=== PATIENT | female | born 1990 | race Two or more races ===

== ENCOUNTER 2018-05-06 15:02 | Emergency (ER) | payer BC ==
--- NOTE | 2018-05-06 15:34 | ER Document Report ---
ED General - General Chief Complaint: Vag Bleeding, +preg <12wks Stated Complaint: VAGINAL BLEEDING Time Seen by Provider: 05/06/18 15:18 Notes: Patient is a 27-year-old female, that is 7 weeks gravid, that presents to the emergency department for chief complaint of vaginal spotting. Patient reports that she has had some vaginal spotting in her underwear over the last 3 days, and mild abdominal cramping, denies any right now. Denies having any dysuria, hematuria. She has had some morning sickness, but has not had any nausea or vomiting today. She denies noting any fevers, chills, night sweats, chest pain, shortness of breath or difficulty breathing. She reports that she is otherwise healthy, and denies having any other complaints at this time. She reports she does have an appointment with [facility] on May 14. Past Medical History: Denies chronic medical conditions Past Surgical History: , tonsillectomy Social History: Denies tobacco, alcohol or drug use. Family History: Reviewed and noncontributory for presenting illness Allergies: Reviewed, see documented allergy list. REVIEW OF SYSTEMS: Unless otherwise stated in this report the patient's positive and negative responses for review of systems for constitutional, eyes, ENT, cardiovascular, respiratory, gastrointestinal, neurological, genitourinary, musculoskeletal, and integumentary systems and related systems to the presenting problem are either as stated in the HPI or were not pertinent or were negative for the symptoms and/or complaints related to the presenting medical problem. PHYSICAL EXAMINATION: Vital signs reviewed, nursing noted reviewed. GENERAL: Well-appearing, well-nourished and in no acute distress. HEAD: Atraumatic, normocephalic. EYES: Eyes appear normal, extraocular movements intact, sclera anicteric, conjunctiva are normal. ENT: nares patent, oropharynx clear without exudates. Moist mucous membranes. NECK: Normal range of motion, supple without lymphadenopathy LUNGS: Breath sounds clear to auscultation bilaterally and equal. No wheezes rales or rhonchi. HEART: Regular rate and rhythm without murmurs ABDOMEN: Soft, nontender, normoactive bowel sounds. No rebound, guarding, or rigidity. No masses appreciated. EXTREMITIES: Nontender, good range of motion, no pitting or edema. NEUROLOGICAL: No focal neurological deficits. Moves all extremities spontaneously Motor and sensory grossly intact on exam. PSYCH: Normal mood, normal affect. SKIN: Warm, Dry, normal turgor, no rashes or lesions noted on exposed skin TRAVEL OUTSIDE OF THE [place] IN LAST 30 DAYS: No - Related Data Allergies/Adverse Reactions: No Known Allergies Allergy (Verified 05/06/18 15:03) Past Medical History - Social History Smoking Status: Never Smoker Family History: None Patient has suicidal ideation: No Patient has homicidal ideation: No Renal/ Medical History: Denies: Hx Peritoneal Dialysis GI Medical History: Reports: Hx Gastroesophageal Reflux Disease Past Surgical History: Reports: Hx Section - Immunizations Hx Diphtheria, Pertussis, Tetanus Vaccination: No Physical Exam - Vital signs Vitals: Temp Pulse Resp BP Pulse Ox 98.5 F 64 14 105/66 100 05/06/18 15:08 05/06/18 15:08 05/06/18 15:08 05/06/18 15:08 05/06/18 15:08 Course - Re-evaluation Re-evalutation: Patient seen and examined vital signs reviewed. Laboratory data and imaging were ordered as appropriate for the patient's presenting symptoms and complaint, with consideration of any critical or life threatening conditions that may be associated with their obtained history and exam as noted above. Pelvic ultrasound, urinalysis, and ABO Rh testing ordered Results were reviewed when available and demonstrated live intrauterine , O+, UA was unremarkable, no evidence of urinary tract infection. The patient was re-evaluated and was stable, no complaints Evaluation was most consistent with vaginal bleeding in first trimester, patient advised to follow-up at her [facility] appointment. Results were discussed with the patient at this point, after careful consideration I feel that that patient can be discharged from the emergency department, the patient was educated treatments and reasons to return to the emergency department based on their presumed diagnosis as noted above, they were advised to followup with a primary care physician in 2-3 days. Patient was agreeable to plan of care. *Note is created using voice recognition software and may contain spelling, syntax or grammatical errors. Laboratory 05/06/18 05/06/18 15:30 16:00 Urine Color YELLOW Urine Appearance CLOUDY Urine pH 6.0 Ur Specific [place] 1.014 Urine Protein NEGATIVE Urine Glucose (UA) NEGATIVE Urine Ketones NEGATIVE Urine Blood NEGATIVE Urine Nitrite NEGATIVE Urine Bilirubin NEGATIVE Urine Urobilinogen NEGATIVE Ur Leukocyte Esterase NEGATIVE Urine WBC (Auto) 1 Urine RBC (Auto) 0 Squamous Epi Cells Auto 5 Urine Mucus (Auto) RARE Urine Ascorbic Acid NEGATIVE Blood Type O POSITIVE Rhogam Indicated RHOGAM NOT INDICATED Obstetrics Ultrasound 05/06/18 15:19 IMPRESSION: LIVING INTRAUTERINE . EGA 6 weeks 6 days Trimester of : First - 0 to 13 weeks. - Vital Signs Vital signs: Temp Pulse Resp BP Pulse Ox 97.8 F 60 15 99/59 L 97 05/06/18 16:59 05/06/18 16:59 05/06/18 16:59 05/06/18 16:59 05/06/18 16:59 Discharge - Discharge Clinical Impression: Vaginal bleeding during Condition: Stable Disposition: HOME, SELF-CARE Instructions: Vaginal Bleeding ([facility]) Additional Instructions: Please keep your appointment with your [facility] on May 14, if you have any further concerns, do not hesitate to return to the emergency department.
[2018-05-06 16:30] LABS: APPEARANCE,URINE CLOUDY; BILIRUBIN,URINE NEGATIVE (NEGATIVE); COLOR,URINE YELLOW; GLUCOSE, URINE NEGATIVE (NEGATIVE); KETONES,URINE NEGATIVE (NEGATIVE); LEUKOCYTE ESTERASE,URINE NEGATIVE (NEGATIVE); NITRITE,URINE NEGATIVE (NEGATIVE); PROTEIN,URINE NEGATIVE (NEGATIVE); URINE SPECIFIC GRAVITY 1.014; UROBILINOGEN,URINE NEGATIVE mg/dL (<2.0)
--- NOTE | 2018-05-06 16:55 | RADIOLOGY REPORT (SQ) ---
EXAM DESCRIPTION: U/S OB TRANSVAGINAL W/O DOP COMPLETED DATE/TIME: 05/06/2018 4:28 pm REASON FOR STUDY: 7-8wks gravid, vaginal bleeding COMPARISON: None. TECHNIQUE: Transvaginal static and realtime grayscale images acquired of the pelvis. Additional lara cted spectral and color Doppler images recorded. All images stored on PACs. bHCG: Not available. CLINICAL DATES: 7 weeks 0 days LIMITATIONS: None. FINDINGS: FETUS: Single Living intrauterine . ULTRASOUND EGA: 6 weeks 6 days ULTRASOUND GERMÁN: 12/24/2018 EFW: Not applicable less than 20 weeks. CRL: 0.7 cm FHR: 114 beats per minute. SURVEY: No visualized anomalies. AMNIOTIC FLUID: Adequate amount. PLACENTA: Not yet developed due to early gestation. SUBCHORIONIC BLEED: No. SIZE OF BLEED: Not applicable. UTERUS: No masses. No anomalies. CERVICAL LENGTH: 2.7 cm Closed. RIGHT ADNEXA: Ovary not identified due to poor acoustical window. No adnexal free fluid. No adnexal masses. LEFT ADNEXA: Normal ovary with normal vascular flow. No adnexal free fluid. No adnexal masses. FREE FLUID: None. OTHER: No other significant finding. IMPRESSION: LIVING INTRAUTERINE . EGA 6 weeks 6 days Trimester of : First - 0 to 13 weeks. TECHNICAL DOCUMENTATION: JOB ID: [id number] [place]-72 2010 [employer]- All Rights Reserved rev Reading location - IP/workstation name: [email or web address]
[2018-05-06 17:00] VITALS: BP 99/59
== END 2018-05-06 17:00 | disposition home or self-care (01) ==
LOC: ER 15:02
DX: O46.91 Antepartum hemorrhage, unspecified, first trimester (principal); Z3A.01 Less than 8 weeks gestation of pregnancy
CPT/HCPCS: 36415; 76817; 81001; 86900; 86901; 99284

== ENCOUNTER 2018-12-18 04:52 | Inpatient (IN) | payer BC ==
[~2018-12-18 04:52] MED LIST: CEFAZOLIN 2 GM/D5W RTU 2 GM/50 ML RTUPB IV PRN; DEXTROSE 40% GEL 15 GM TUBE PO PRN; DEXTROSE 50%-WATER 25 GM/50 ML DISP.SYRIN IV PRN; GLUCAGON,HUMAN RECOMB 1 MG INJ SUBCUT PRN; RINGERS SOLUTION,LACTATED 1,000 ML IV ONE; RINGERS SOLUTION,LACTATED 1,000 ML IV PRN
[2018-12-18 05:37] LABS: APPEARANCE,URINE SLIGHTLY-CLOUDY; BILIRUBIN,URINE NEGATIVE (NEGATIVE); COLOR,URINE YELLOW; GLUCOSE, URINE NEGATIVE (NEGATIVE); KETONES,URINE NEGATIVE (NEGATIVE); LEUKOCYTE ESTERASE,URINE NEGATIVE (NEGATIVE); NITRITE,URINE NEGATIVE (NEGATIVE); PROTEIN,URINE NEGATIVE (NEGATIVE); URINE SPECIFIC GRAVITY 1.014; UROBILINOGEN,URINE NEGATIVE mg/dL (<2.0)
[2018-12-18 05:52] LABS: ABSOLUTE EOSINOPHILS # (AUTO) 0.1 10^3/uL (0.0-0.6); ABSOLUTE LYMPHOCYTES (AUTO) 1.4 10^3/uL (0.5-4.7); ABSOLUTE MONOCYTES (AUTO) 0.8 10^3/uL (0.1-1.4); ABSOLUTE NEUT (AUTO) 4.3 10^3/uL (1.7-8.2); BASOPHILS % (AUTO) 0.4 % (0-2); EOSINOPHILS % (AUTO) 1.6 % (0-6); HEMATOCRIT 37.4 % (36.0-47.0); HEMOGLOBIN 12.6 g/dL (12.0-15.5); MEAN CORPUSCULAR HGB CONC 33.8 g/dL (32.0-36.0); MEAN CORPUSCULAR VOLUME 83 fl (80-97); MONOCYTES % (AUTO) 12.4 % (3-13); PLATELET COUNT 155 10^3/uL (150-450); RED BLOOD COUNT 4.51 10^6/uL (3.72-5.28); RED CELL DISTRIBUTION WIDTH 17.3 % (11.5-14.0); SEGMENTED NEUTROPHILS % (AUTO) 64.6 % (42-78); TOTAL CELLS COUNTED % (AUTO) 100 %; WHITE BLOOD COUNT 6.7 10^3/uL (4.0-10.5)
[2018-12-18] MEDS ORDERED: CEFAZOLIN SODIUM 2 GM in DEXTROSE 5%-WATER 50 ML IV PRN (06:00)
[2018-12-18] MEDS ORDERED: OXYTOCIN 10 UNIT/ML VIAL ONE (06:33)
[2018-12-18] MEDS ORDERED: FENTANYL CITRATE INJ/PF 100 MCG/2 ML AMPUL ONE (06:34)
[2018-12-18] MEDS ORDERED: EPHEDRINE SULFATE INJ 50 MG/1 ML AMPULE ONE (06:34)
[2018-12-18] MEDS ORDERED: MIDAZOLAM 2 MG/2 ML INJ ONE (06:34)
[2018-12-18] MEDS ORDERED: PROPOFOL INJ 200 MG/20 ML VIAL IV ONE (06:35)
[2018-12-18] MEDS ORDERED: ACETAMINOPHEN 1,000 MG/100 ML RTUPB IV ONE (06:35)
[2018-12-18 06:37] LABS: ADD MANUAL MICROSCOPIC YES
[2018-12-18 06:55] LABS: BACTERIA,URINE 4+ /HPF; RBC,URINE NONE SEEN /HPF
[2018-12-18] MEDS ORDERED: OXYTOCIN/NORMAL SALINE 20 UNIT/1,000 ML RTUINJ ONE (06:59)
[2018-12-18] MEDS ORDERED: CEFAZOLIN 2 GM/D5W RTU 2 GM/50 ML RTUPB IV ONE (07:02)
[2018-12-18 07:21] LABS: URINE AMPHETAMINES SCREEN NEGATIVE; URINE BARBITURATES SCREEN NEGATIVE; URINE BENZODIAZEPINES SCREEN NEGATIVE; URINE COCAINE SCREEN NEGATIVE; URINE MARIJUANA (THC) SCREEN NEGATIVE; URINE METHADONE SCREEN NEGATIVE; URINE PHENCYCLIDINE SCREEN NEGATIVE
[2018-12-18] MEDS ORDERED: MORPHINE SULFATE 10 MG/ML INJ IV PRN ×2 (07:30→09:17)
[2018-12-18] MEDS ORDERED: MEPERIDINE HCL/PF INJ 25 MG/1 ML DISP.SYRIN IV PRN (07:30)
[2018-12-18] MEDS ORDERED: PROMETHAZINE HCL INJ 25 MG/1 ML VIAL IV PRN ×3 (07:30→09:17)
[2018-12-18] MEDS ORDERED: DIPHENHYDRAMINE HCL 50 MG/ML VIAL IV PRN (07:30)
[2018-12-18] MEDS ORDERED: ONDANSETRON HCL INJ/PF 4 MG/2 ML SDV IV PRN (07:30)
[2018-12-18] MEDS ORDERED: FENTANYL CITRATE INJ/PF 100 MCG/2 ML AMPUL IV PRN ×3 (07:30)
[2018-12-18] MEDS ORDERED: ACETAMINOPHEN 1,000 MG/100 ML RTUPB IV PRN (09:17)
[2018-12-18] MEDS ORDERED: SIMETHICONE 80 MG TAB.CHEW PO PRN (09:17)
[2018-12-18] MEDS ORDERED: RINGERS SOLUTION,LACTATED 1,000 ML IV PRN (09:17)
[2018-12-18] MEDS ORDERED: OXYCODONE-ACETAMINOPHEN 5-325 MG TABLET PO PRN (09:17)
[2018-12-18] MEDS ORDERED: DIPH/PERTUSS(ACELL)/TETANUS VAC/PF 0.5 ML SYR (>=10YO) IM PRN (09:17)
[2018-12-18] MEDS ORDERED: MEASLES,MUMPS&RUBELLA VACC/PF 0.5 ML VIAL SUBCUT PRN (09:17)
[2018-12-18] MEDS ORDERED: OXYTOCIN/NORMAL SALINE 20 UNIT/1,000 ML RTUINJ IV PRN (09:17)
[2018-12-18] MEDS ORDERED: ACETAMINOPHEN 325 MG TABLET PO PRN (09:17)
--- NOTE | 2018-12-18 09:49 | OPERATIVE REPORT E ---
Operative Report NAME: SOLIS AVENDANO : 1990 AGE: 28Y DATE OF SURGERY: 12/18/2018 ROOM: 227 PREOPERATIVE DIAGNOSES: 1. IUP at 39 weeks, previous x1, desires repeat. 2. Undesired fertility. POSTOPERATIVE DIAGNOSES: 1. IUP at 39 weeks, previous x1, desires repeat. 2. Undesired fertility. OPERATION: Low-transverse hysterotomy section repeat with bilateral tubal ligation, [place]. SURGEON: LEAH DRAPER M.D. ANESTHESIA: Marlene Anand M.D. with a spinal. COMPLICATIONS: None. ESTIMATED BLOOD LOSS: 750 mL. SPECIMENS REMOVED: Bilateral fallopian tube segments. PROCEDURE IN DETAIL: The patient was taken to the operating room and prepared and draped in a normal sterile fashion in the supine position with a leftward tilt. A transverse skin incision was made with a scalpel following the patient's previous scar, and this was carried through to the underlying layer of fascia with the same scalpel. The fascia was excised in the midline and extended laterally with surgeon finger fracture. The rectus muscle was dissected from the fascia bluntly. The rectus muscle was divided. The peritoneal cavity was entered bluntly with good visualization of the bladder and the uterus. The bladder blade was inserted. The hysterotomy was nicked with a scalpel and extended laterally with surgeon finger fracture. The was then delivered atraumatically. The nose and mouth were suctioned with the suction bulb, the cord was clamped and cut, and the infant was handed off to awaiting pediatricians. Cord blood was collected. The uterus was exteriorized and cleared of clots and debris. The hysterotomy was closed with 0 Monocryl in a running, locked fashion. A second layer of the same suture was used to imbricate to ensure hemostasis. Attention was then turned to the fallopian tubes where the left fallopian tube was grasped with a Kyung and the mesosalpinx was divided, and a large 3.5 cm segment of fallopian tube was then tied off with 2 pieces of 2-0 chromic and the intermediate section was removed with Metzenbaums. The pedicles were made hemostatic with the Bovie. This was repeated on the right fallopian tube without difficulty. The uterus was returned to the abdomen. The pedicles were reinspected and found to be hemostatic. The hysterotomy was also found to be hemostatic. The rectus muscles and peritoneum were reapproximated with a mattress stitch of 2-0 chromic. The fascia was closed with 0 Vicryl, the subcutaneous layer was closed with plain catgut, and the skin was closed with 4-0 Vicryl. The patient tolerated the procedure well. Sponge, lap, and needle counts were correct x2. The patient was taken to recovery in stable condition. DICTATING PHYSICIAN: LEAH DRAPER M.D. [id number] PHY#: [id number] ID: [id number] JOB#: [id number] ACCT: [id number] cc:LEAH DRAPER M.D. >
[2018-12-18] MEDS ORDERED: MORPHINE SULFATE 10 MG/ML INJ ONE (10:35)
[2018-12-18] MEDS: DOCUSATE SODIUM 100 MG CAPSULE PO SCH ×2 (11:05→18:11)
[2018-12-18] MEDS: PRENATAL VITAMIN W DHA CAPSULE PO SCH (11:05)
[2018-12-18] MEDS: KETOROLAC TROMETHAMINE INJ/PF 30 MG/1 ML SDV IV SCH ×2 (15:33→21:04)
[2018-12-18] MEDS: OXYCODONE-ACETAMINOPHEN 5-325 MG TABLET PO PRN (15:34)
[2018-12-19] MEDS: OXYCODONE-ACETAMINOPHEN 5-325 MG TABLET PO PRN (04:43)
[2018-12-19] MEDS: KETOROLAC TROMETHAMINE INJ/PF 30 MG/1 ML SDV IV SCH (06:08)
[2018-12-19 06:27] LABS: HEMATOCRIT 37.1 % (36.0-47.0); HEMOGLOBIN 12.3 g/dL (12.0-15.5); MEAN CORPUSCULAR HEMOGLOBIN 27.8 pg (27.0-33.4); MEAN CORPUSCULAR VOLUME 84 fl (80-97); PLATELET COUNT 174 10^3/uL (150-450); RED CELL DISTRIBUTION WIDTH 17.5 % (11.5-14.0); WHITE BLOOD COUNT 11.1 10^3/uL (4.0-10.5)
[2018-12-19] MEDS: PRENATAL VITAMIN W DHA CAPSULE PO SCH (09:44)
[2018-12-19] MEDS: DOCUSATE SODIUM 100 MG CAPSULE PO SCH ×2 (09:44→17:26)
--- NOTE | 2018-12-19 12:41 | PDOC PROGRESS REPORT ---
Subjective-OB Progress Note for:: 12/19/18 Subjective: Pt doing well, no complaints. She reports light bleeding, reg diet and voiding without difficulty. Ambulatory. Physical Exam (OB) Vital Signs: Temp Pulse Resp BP Pulse Ox 98.2 F 64 16 114/69 100 12/19/18 07:36 12/19/18 07:36 12/19/18 07:36 12/19/18 07:36 12/19/18 07:36 Intake & Output 12/18/18 12/19/18 12/20/18 06:59 06:59 06:59 Intake Total 740 400 Output Total 2250 Balance -1510 400 Weight 60 kg - PIH/Pre-Eclampsia Clonus: Negative Headache: Absent Epigastric Pain: No Visual Changes: No - Dressing Removed: No Incision: Dressing, Well Approximated Closure Type: Sutures - Lochia Lochia Amount: Scant < 10 ml Lochia Color: Rubra/Red - Abdomen Description: Soft Hernia Present: No Fundal Description: Firm Fundal Height: u/u - u/2 Objective-Diagnostic Laboratory: 12/19/18 06:17 12/19/18 06:17 WBC 11.1 H RBC 4.40 Hgb 12.3 Hct 37.1 MCV 84 MCH 27.8 MCHC 33.0 RDW 17.5 H Plt Count 174 Assessment and Plan(PN) - Assessment and Plan (1) Gestational diabetes Qualifiers: Gestational diabetes mellitus control: unspecified Trimester: third trimester Qualified Code(s): O24.419 - Gestational diabetes mellitus in , unspecified control Is this a current diagnosis for this admission?: Yes (2) H/O section complicating Is this a current diagnosis for this admission?: Yes (3) Polyhydramnios affecting Is this a current diagnosis for this admission?: Yes - Time Spent with Patient Time with patient: Less than 15 minutes Medications reviewed and adjusted accordingly: Yes - Disposition Anticipated Discharge: Home Within: within 24 hours
[2018-12-19] MEDS: IBUPROFEN 800 MG TABLET PO SCH ×3 (13:35→23:40)
[2018-12-20] MEDS: IBUPROFEN 800 MG TABLET PO SCH ×4 (06:47→23:34)
[2018-12-20] MEDS: DOCUSATE SODIUM 100 MG CAPSULE PO SCH ×2 (09:52→18:07)
[2018-12-20] MEDS: PRENATAL VITAMIN W DHA CAPSULE PO SCH (09:52)
--- NOTE | 2018-12-20 10:54 | PDOC PROGRESS REPORT ---
Subjective-OB Progress Note for:: 12/20/18 Subjective: Staying overnight as bili problem w baby. Physical Exam (OB) Vital Signs: Temp Pulse Resp BP Pulse Ox 97.8 F 62 15 119/82 100 12/20/18 07:42 12/20/18 07:42 12/20/18 07:42 12/20/18 07:42 12/20/18 07:42 Intake & Output 12/19/18 12/20/18 12/21/18 06:59 06:59 06:59 Intake Total 740 990 400 Output Total 2250 Balance -1510 990 400 Weight 60 kg - PIH/Pre-Eclampsia DTR's: 2 + Clonus: Negative Headache: Absent Epigastric Pain: No Visual Changes: No - Dressing Removed: No Incision: Dressing Closure Type: Sutures - Bilateral Tubal Ligation Dressing Removed: No - Lochia Lochia Amount: Scant < 10 ml Lochia Color: Rubra/Red - Abdomen Description: Soft Hernia Present: No Bowel Sounds: Normoactive Flatus Presence: Present Stool: No Fundal Description: Firm Fundal Height: u/u - u/2 Objective-Diagnostic Laboratory: 12/19/18 06:17 Assessment and Plan(PN) - Time Spent with Patient Medications reviewed and adjusted accordingly: Yes - Disposition Anticipated Discharge: Home
[2018-12-21] MEDS: IBUPROFEN 800 MG TABLET PO SCH ×2 (06:24→12:11)
[2018-12-21] MEDS: PRENATAL VITAMIN W DHA CAPSULE PO SCH (10:13)
[2018-12-21] MEDS: DOCUSATE SODIUM 100 MG CAPSULE PO SCH (10:13)
[2018-12-21 12:14] VITALS: BP 117/83
--- NOTE | 2018-12-21 12:25 | PDOC PROGRESS REPORT ---
Subjective-OB Progress Note for:: 12/21/18 Subjective: OOB in room, feeling good, pain under control, passing gas, eating, Physical Exam (OB) Vital Signs: Temp Pulse Resp BP Pulse Ox 97.9 F 73 20 117/83 100 12/21/18 11:48 12/21/18 11:48 12/21/18 11:48 12/21/18 11:48 12/21/18 11:48 Intake & Output 12/20/18 12/21/18 12/22/18 06:59 06:59 06:59 Intake Total 990 640 Balance 990 640 - PIH/Pre-Eclampsia DTR's: 2 + Clonus: Negative Headache: Absent Epigastric Pain: No Visual Changes: No - Dressing Removed: No Incision: Well Approximated Closure Type: opsite - Bilateral Tubal Ligation Dressing Removed: No - Lochia Lochia Amount: Scant < 10 ml Lochia Color: Rubra/Red - Abdomen Description: Soft, Round Hernia Present: No Fundal Description: Firm Fundal Height: u/u - u/2 Objective-Diagnostic Laboratory: 12/19/18 06:17 Assessment and Plan(PN) - Assessment and Plan (2) Unwanted fertility Is this a current diagnosis for this admission?: Yes (3) Polyhydramnios affecting Is this a current diagnosis for this admission?: Yes (4) Gestational diabetes Qualifiers: Gestational diabetes mellitus control: diet-controlled Trimester: third trimester Qualified Code(s): O24.410 - Gestational diabetes mellitus in , diet controlled Is this a current diagnosis for this admission?: Yes (5) Positive GBS test Is this a current diagnosis for this admission?: Yes - Time Spent with Patient Time with patient: Less than 15 minutes Medications reviewed and adjusted accordingly: Yes - Disposition Anticipated Discharge: Home Within: within 24 hours
--- NOTE | 2018-12-21 12:29 | PDOC DISCHARGE SUMMARY ---
Final Diagnosis Discharge Date: 12/21/18 - Final Diagnosis (1) Status post repeat low transverse section Is this a current diagnosis for this admission?: Yes (2) Unwanted fertility Is this a current diagnosis for this admission?: Yes (3) Polyhydramnios affecting Is this a current diagnosis for this admission?: Yes (4) Gestational diabetes Is this a current diagnosis for this admission?: Yes (5) Positive GBS test Is this a current diagnosis for this admission?: Yes Discharge Data - Discharge Medication Prescriptions: Oxycodone HCl/Acetaminophen [Percocet 5-325 mg Tablet] 1 tab PO Q4HP PRN #20 tablet PRN Reason: Ibuprofen [Motrin 800 mg Tablet] 800 mg PO Q6 #30 tablet Home Medications: Ibuprofen [Motrin 800 mg Tablet] 800 mg PO Q6 #30 tablet 12/21/18 Oxycodone HCl/Acetaminophen [Percocet 5-325 mg Tablet] 1 tab PO Q4HP PRN #20 tablet 12/21/18 Reason(s) for Admission: Ceasarean Section-Repeat, Tubal Ligation, Gestional Diabetes Procedures: NST, Ultrasound Intrapartum Procedure(s): : Low Cervical, Transverse - Data Baby 1 Male Weight: 3.884 kg Home with Mother: Yes Complications: No - Diagnosis Test Laboratory: Temp Pulse Resp BP Pulse Ox 97.9 F 73 20 117/83 100 12/21/18 11:48 12/21/18 11:48 12/21/18 11:48 12/21/18 11:48 12/21/18 11:48 12/18/18 12/18/18 12/19/18 05:30 05:42 06:17 RBC 4.51 4.40 Hgb 12.6 12.3 Hct 37.4 37.1 Urine Opiates Screen NEGATIVE - Discharge information/Instructions Discharge Activity: Activity As Tolerated, No Lifting Over 10 Pounds, No Lifting/Push/Pulling, Pelvic Rest Discharge Diet: As Tolerated, Regular Disposition: HOME, SELF-CARE Follow [facility]: [facility] in: 1, Weeks
== END 2018-12-21 15:25 | disposition home or self-care (01) | DRG 785 ==
LOC: 2S 04:52
PROVIDERS: ADMIT Obstetrics & Gynecology; ATTEND Obstetrics & Gynecology
PROC: 0UB70ZZ Excision of Bilateral Fallopian Tubes, Open Approach (ICD-10-PCS; 2018-12-18)
PROC: 10D00Z1 Extraction of Products of Conception, Low, Open Approach (ICD-10-PCS; principal; 2018-12-18 07:45)
DX: O34.211 Maternal care for low transverse scar from previous cesarean delivery (principal); Z30.2 Encounter for sterilization; O24.420 Gestational diabetes mellitus in childbirth, diet controlled; O40.3XX0 Polyhydramnios, third trimester, not applicable or unspecified; O99.824 Streptococcus B carrier state complicating childbirth; Z3A.39 39 weeks gestation of pregnancy; Z37.0 Single live birth
CPT/HCPCS: 1961; 36415; 59025; 80307; 81001; 85025; 85027; 86850; 86900; 86901; 88302; 94799; J0131; J1885; J2250; J2270; J2590; J2704; J3010; J3490